=== PATIENT | male | born 1990 | race American Indian/Alaskan Native ===

== ENCOUNTER 2017-04-26 01:32 | Emergency (ER) | payer OTHER, BC ==
[2017-04-26 03:11] LABS: Bilirubin,Urine NEG (Negative); Blood,Urine NEG (Negative); Color,Urine Yellow (Yellow); Mucus,Urine FEW /HPF; Protein,Urine <15 mg/dL mg/dL (Negative); Urobilinogen,Urine < 2.0 mg/dL (<2.0)
[2017-04-26] MEDS ORDERED: TORADOL IM ONE (08:06)
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
[2017-04-26 09:30] VITALS: BP 144/91
== END 2017-04-26 08:50 | disposition home or self-care (01) ==
LOC: ED 01:32
DX: S13.4XXA Sprain of ligaments of cervical spine, initial encounter (principal); V49.49XA Driver injured in collision with other motor vehicles in traffic accident, initial encounter; Y93.89 Activity, other specified; Y92.89 Other specified places as the place of occurrence of the external cause; Y99.8 Other external cause status
CPT/HCPCS: 81001; 96372; 99283; J1885

== ENCOUNTER 2017-06-13 14:28 | Emergency (ER) | payer BC, OTHER ==
[2017-06-13 15:18] VITALS: BP 138/80
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
== END 2017-06-13 16:23 | disposition home or self-care (01) ==
LOC: ED 14:28
DX: J06.9 Acute upper respiratory infection, unspecified (principal); Z87.891 Personal history of nicotine dependence
CPT/HCPCS: 99282

== ENCOUNTER 2017-07-23 11:06 | Emergency (ER) | payer BC ==
[2017-07-23 11:13] VITALS: BP 119/77
[2017-07-23] MEDS ORDERED: BSS 1 DROPS, TETRACAINE 0.5% 1 DROPS, FUL-GLO 0.6 MG OS ONE (11:48)
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
[2017-07-23] MEDS ORDERED: FUL-GLO OP ONE (11:53)
[2017-07-23] MEDS ORDERED: TETRACAINE 0.5% ONE (11:53)
[2017-07-23] MEDS ORDERED: BSS ONE (11:53)
== END 2017-07-23 12:31 | disposition home or self-care (01) ==
LOC: ED 11:06
DX: H10.32 Unspecified acute conjunctivitis, left eye (principal)

== ENCOUNTER 2017-09-24 08:30 | Emergency (ER) | payer OTHER, BC ==
[2017-09-24 08:35] VITALS: BP 141/82
[2017-09-24] MEDS ORDERED: MOTRIN PO ONE (09:47)
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
== END 2017-09-24 11:07 | disposition home or self-care (01) ==
LOC: ED 08:30
DX: S39.012A Strain of muscle, fascia and tendon of lower back, initial encounter (principal); M62.830 Muscle spasm of back; Z79.899 Other long term (current) drug therapy; V49.09XA Driver injured in collision with other motor vehicles in nontraffic accident, initial encounter; Y93.89 Activity, other specified; Y99.8 Other external cause status; Y92.488 Other paved roadways as the place of occurrence of the external cause
CPT/HCPCS: 99281

== ENCOUNTER 2018-03-30 13:55 | Emergency (ER) | payer BC, OTHER ==
[2018-03-30 14:00] VITALS: BP 156/93
--- NOTE | 2018-03-30 14:00 | Emergency Department Report ---
Chief Complaint: Psych Stated Complaint: DEPRESSION Time Seen by Provider: 03/30/18 13:58 - HPI History of Present Illness: DEPRESSED/ANXIOUS NO MENTAL HEALTH DX NO HI NO SI NO AV HALLUCINATIONS POS RACING THOUGHTS TO ER FOR MHE MSE screening note: Focused history and physical exam performed. Due to findings the following was ordered: ED Disposition for MSE Condition: Stable
[2018-03-30 14:27] LABS: Bilirubin,Urine NEG (Negative); Blood,Urine NEG (Negative); Color,Urine Yellow (Yellow); Mucus,Urine FEW /HPF; Protein,Urine <15 mg/dL mg/dL (Negative)
[2018-03-30 14:44] LABS: Amphetamine Screen,Urine PRESUMPTIVE NEGATIVE; Benzodiazepines Screen,Urine PRESUMPTIVE NEGATIVE; Cannabinoid Screen,Urine PRESUMPTIVE NEGATIVE; Cocaine Screen,Urine PRESUMPTIVE NEGATIVE; Methadone Screen,Urine PRESUMPTIVE NEGATIVE; Opiate Screen,Urine PRESUMPTIVE NEGATIVE
[2018-03-30 15:24] LABS: BUN/Creatinine Ratio 17; Blood Urea Nitrogen 12 mg/dL (9-20); Calcium 9.4 mg/dL (8.4-10.2); Hemolysis Index 15
[2018-03-30 15:37] LABS: Basophils # (Auto) 0.1 K/mm3 (0.0-0.1); Eosinophils # (Auto) 0.2 K/mm3 (0.0-0.4); Eosinophils % (Auto) 3.5 % (0.0-4.3); Hematocrit 46.3 % (35.5-45.6); Hemoglobin 15.6 gm/dl (11.8-15.2); Mean Corpuscular HGB Conc 34 % (32-34); Mean Corpuscular Volume 91 fl (84-94); Monocytes # (Auto) 0.4 K/mm3 (0.0-0.8); Monocytes % (Auto) 7.5 % (0.0-7.3); Platelet Count 243 K/mm3 (140-440); Red Blood Count 5.07 M/mm3 (3.65-5.03); Red Cell Distribution Width 13.2 % (13.2-15.2)
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
== END 2018-03-30 16:55 | disposition home or self-care (01) ==
LOC: ED 13:55
DX: F32.9 Major depressive disorder, single episode, unspecified (principal)
CPT/HCPCS: 36415; 80048; 80307; 81001; 84443; 85025; 99283; G0480; 80320

== ENCOUNTER 2018-12-14 13:44 | Emergency (ER) | payer BC ==
--- NOTE | 2018-12-14 14:08 | Emergency Department Report ---
Chief Complaint: Abdominal Pain Stated Complaint: STOMACH PAIN/SOB - HPI History of Present Illness: 28yo BM states that he has abdominal pain beginning this morning. He states that he ate out last night. His pain worsened today after eating greasy food and having a soda. MSE screening note: Focused history and physical exam performed. Due to findings the following was ordered: ED Disposition for MSE Condition: Stable
[2018-12-14] MEDS ORDERED: FAMOTIDINE 20 MG/2 ML INJ IV ONE (14:25)
[2018-12-14] MEDS ORDERED: SODIUM CHLORIDE 0.9% 1000 ML 1,000 ML IV ONE (14:25)
[2018-12-14] MEDS ORDERED: ONDANSETRON 4 MG/2 ML INJ IV ONE (14:25)
[2018-12-14] MEDS ORDERED: DICYCLOMINE 20 MG/2 ML INJ IM ONE (14:25)
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
[2018-12-14 16:49] VITALS: BP 134/68
== END 2018-12-14 16:49 | disposition home or self-care (01) ==
LOC: ED 13:44
DX: K52.9 Noninfective gastroenteritis and colitis, unspecified (principal)
CPT/HCPCS: 96361; 96372; 96374; 96375; 99282; J0500; J2405; J7030

== ENCOUNTER 2021-09-01 11:36 | Emergency (ER) | payer BC, OTHER ==
[2021-09-01 18:55] LABS: Hemoglobin 14.6 gm/dl (11.8-15.2); Mean Corpuscular HGB Conc 34 % (32-34); Mean Corpuscular Volume 92 fl (84-94); Platelet Count 178 K/mm3 (140-440); Red Blood Count 4.68 M/mm3 (3.65-5.03); Red Cell Distribution Width 12.8 % (13.2-15.2)
[2021-09-01 19:33] LABS: Basophils % (Manual) 0 % (0.0-1.8); Eosinophils % (Manual) 0 % (0.0-4.3); Platelet Estimate Consistent w Auto; RBC Morphology Normal; Total Cells Counted 100
--- NOTE | 2021-09-01 19:55 | Cat Scan Report ---
CT ABDOMEN AND PELVIS WITHOUT CONTRAST INDICATION / CLINICAL INFORMATION: HEMATURIA, R/O KIDNEY STONES. TECHNIQUE: Axial CT images were obtained through the abdomen and pelvis without IV contrast. All CT scans at this location are performed using CT dose reduction for ALARA by means of automated exposure control. COMPARISON: None available. FINDINGS: LOWER CHEST: No significant abnormality. LIVER: No significant abnormality. GALLBLADDER: No significant abnormality. BILE DUCTS: No significant abnormality. PANCREAS: No significant abnormality. SPLEEN: No significant abnormality. ADRENALS: No significant abnormality. RIGHT KIDNEY / URETER: No significant abnormality. LEFT KIDNEY / URETER: No significant abnormality. STOMACH / SMALL BOWEL: No significant abnormality. COLON: No significant abnormality. APPENDIX: No significant abnormality. PERITONEUM: No free fluid. No free air. No fluid collection. LYMPH NODES: No significant adenopathy. VASCULAR STRUCTURES: No significant abnormality. URINARY BLADDER: No significant abnormality. REPRODUCTIVE ORGANS: No significant abnormality. ADDITIONAL FINDINGS: None. SKELETAL SYSTEM: No significant abnormality. IMPRESSION: Negative for obstruction or localized inflammation. Signer Name: Tyler Stock MD Signed: 09/01/2021 7:51 PM Workstation Name: [id number]
[2021-09-01 19:57] VITALS: BP 136/84
[2021-09-01 19:58] LABS: Alanine Aminotransferase 23 units/L (7-56); Albumin 4.6 g/dL (3.9-5); BUN/Creatinine Ratio 13; Blood Urea Nitrogen 13 mg/dL (9-20); Calcium 8.9 mg/dL (8.4-10.2); Hemolysis Index 14
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
[2021-09-01 20:49] LABS: Hyaline Casts,Urine 4 /LPF; Mucus,Urine 1+ /HPF
[2021-09-01 20:52] LABS: Bilirubin,Urine Negative (Negative); Blood,Urine Small (Negative); Color,Urine Yellow (Yellow)
== END 2021-09-01 21:22 | disposition home or self-care (01) ==
LOC: ED 11:36
DX: R31.9 Hematuria, unspecified (principal); M62.830 Muscle spasm of back; M54.9 Dorsalgia, unspecified; Z98.890 Other specified postprocedural states
CPT/HCPCS: 36415; 74176; 80053; 81001; 85007; 85025; 99284